=== PATIENT | female | born 1975 | race Caucasian/White ===

== ENCOUNTER 2017-04-15 17:56 | Emergency (ER) | payer MEDICARE ==
--- NOTE | 2017-04-15 18:19 | Emergency Department Record ---
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 she had sob and broke out in a sweat. it lasted about 15 minutes graduallly easing up. she smokes but has no fam hx. she has had no pe risk facrors except smoking. she has a back disability MD Complaint: Chest pain Onset/Timin -: Minutes(s) Onset: During rest Pain Location: Substernal Severity: Severe Severity scale (1-10): 10 Quality: Sharp Consistency: Constant, Now resolved Improves With: Nothing Worsens With: Nothing Anginal Symptoms: Diaphoresis, Dyspnea Treatments Prior to Arrival: None Treatment Prior to Arrival Comment:: EMS states they gave 4 aspirin in the ambulance - Related Data Home Medications Medication Instructions Recorded Confirmed Last Taken Albuterol Sulfate [Proair Hfa] 1 - 2 puff IH .EVERY 4-6 HOURS PRN 04/15/1704/1504/15/17 Budesonide/Formoterol Fumarate 10.2 gm IH ASDIR 04/15/17 04/15/17 Unknown [Symbicort 80-4.5 Mcg Inhaler] Fluticasone/Salmeterol [Advair 1 each IH ASDIR 04/15/17 04/15/17 Unknown 100-50 Diskus] Sertraline HCl [Zoloft] 50 mg PO DAILY 04/15/17 04/15/17 Unknown Allergies Allergy/AdvReac Type Severity Reaction Status Date / Time bee venom protein (honey bee) Allergy ANAPHYLAXIS Verified 04/15/17 18:00 shrimp Allergy ANAPHYLAXIS Verified 04/15/17 18:00 hydrocodone [From [place]] AdvReac VOMITING Verified 04/15/17 18:00 hydromorphone [From Dilaudid] AdvReac VOMITING Verified 04/15/17 18:00 meperidine [From Demerol] AdvReac VOMITING Verified 04/15/17 18:00 Travel Screening - Travel/Exposure Within Last 30 Days Have you traveled within the last 30 days?: No Review of Systems Reviewed: No additional complaints except as noted below Constitutional: Reports: As per HPI. Denies: Chills, Fever, Malaise, Night sweats, Weakness, Weight change Eyes: Reports: As per HPI. Denies: Eye discharge, Eye pain, Photophobia, Vision change ENT: Reports: As per HPI. Denies: Congestion, Dental pain, Ear pain, Epistaxis , Hearing loss, Throat pain Respiratory: Reports: As per HPI. Denies: Cough, Dyspnea, Hemoptysis, Stridor, Wheezes Cardiovascular: Reports: As per HPI. Denies: Arrhythmia, Chest pain, Dyspnea on exertion, Edema, Murmurs, Orthopnea, Palpitations, Paroxysmal nocturnal dyspnea, Rheumatic Fever, Syncope Endocrine: Reports: As per HPI. Denies: Fatigue, Heat or cold intolerance, Polydipsia, Polyuria Gastrointestinal: Reports: As per HPI. Denies: Abdominal pain, Constipation, Diarrhea, Hematemesis, Hematochezia, Melena, Nausea, Vomiting Genitourinary: Reports: As per HPI. Denies: Abnormal menses, Discharge, Dyspareunia, Dysuria, Frequency, Hematuria, Incontinence, Retention, Urgency Musculoskeletal: Reports: As per HPI. Denies: Arthralgia, Back pain, Gout, Joint swelling, Myalgia, Neck pain Skin: Reports: As per HPI. Denies: Bruising, Change in color, Change in hair/ nails, Lesions, Pruritus, Rash Neurological: Reports: As per HPI. Denies: Abnormal gait, Confusion, Headache, Numbness, Paresthesias, Seizure, Tingling, Tremors, Vertigo, Weakness Psychiatric: Reports: As per HPI. Denies: Anxiety, Auditory hallucinations, Depression, Homicidal thoughts, Suicidal thoughts, Visual hallucinations Hematological/Lymphatic: Reports: As per HPI. Denies: Anemia, Blood Clots, Easy bleeding, Easy bruising, Swollen glands Past Medical History - SOCIAL HISTORY Smoking Status: Current every day smoker Alcohol Use: Occasional Drug Use: None - RESPIRATORY Hx Respiratory Disorders: Yes Hx Asthma: Yes - CARDIOVASCULAR Hx Cardio Disorders: No - NEURO Hx Neuro Disorders: No - GI Hx GI Disorders: No - Hx Genitourinary Disorders: No - ENDOCRINE Hx Endocrine Disorders: Yes Hx Diabetes: Yes (hypoglycemic) - MUSCULOSKELETAL Hx Musculoskeletal Disorders: No - PSYCH Hx Psych Problems: Yes Hx Anxiety: Yes Hx Depression: Yes - HEMATOLOGY/ONCOLOGY Hx Hematology/Oncology Disorders: No Family Medical History Any Significant Family History?: Yes Hx Cancer: Father, Grandparents Physical Exam - General General Appearance: Alert, Oriented x3, Cooperative, Mild distress - Head Head exam: Normal inspection - Eye Eye exam: Normal appearance, PERRL, EOMI Pupils: Normal accommodation - ENT ENT exam: Normal exam, Mucous membranes moist, Normal external ear exam, Normal orophraynx, TM's normal bilaterally Ear exam: Normal external inspection. negative: External canal tenderness Nasal Exam: Normal inspection. negative: Discharge, Sinus tenderness Mouth exam: Normal external inspection, Tongue normal Teeth exam: Normal inspection. negative: Dental caries Throat exam: Normal inspection. negative: Tonsillar erythema, Tonsillar exudate - Neck Neck exam: Normal inspection, Full ROM. negative: Tenderness - Respiratory Respiratory exam: Normal lung sounds bilaterally. negative: Respiratory distress - Cardiovascular Cardiovascular Exam: Regular rate, Normal rhythm, Normal heart sounds - GI/Abdominal GI/Abdominal exam: Soft, Normal bowel sounds. negative: Tenderness - Rectal Rectal exam: Deferred - exam: Deferred - Extremities Extremities exam: Normal inspection, Full ROM, Normal capillary refill. negative: Tenderness - Back Back exam: Reports: Normal inspection, Full ROM. Denies: Muscle spasm, Rash noted, Tenderness - Neurological Neurological exam: Alert, CN II-XII intact, Normal gait, Oriented X3 - Psychiatric Psychiatric exam: Normal affect, Normal mood - Skin Skin exam: Dry, Intact, Normal color, Warm Course Vital Signs 04/15/17 17:58 Temperature 98.2 F Pulse Rate 86 Respiratory 18 Rate Blood Pressure 108/68 Pulse Ox 97 - Reevaluation(s) Reevaluation #1: 04/15/17 19:12 pt unhooked herself and went to restroom. we were extremely busy. she became upset that someone didnt immediately come back in and hook her back up. she was pain free at the time. she was back in her room approx 10 minutes when she became upset that no one had hooked her back up. she had not communicated this to anyone. i explained to the pt that her nurse and all of us were very busy and asked if she had pushed her call button or asked for help. she had not. i asked her repeatedly to stay and complete her evaluation as i am concerned about her. she adamently refused and wants to leave. i explained the risks to her including . she still refused. she was told that she could return at any time Medical Decision Making - Lab Data Result diagrams: 04/15/17 18:15 04/15/17 18:15 Disposition Disposition: Other Clinical Impression: Chest pain Qualifiers: Chest pain type: unspecified Qualified Code(s): R07.9 - Chest pain, unspecified Disposition: Against Medical Advice Instructions: Chest Pain (ED) Additional Instructions: may return at any time Forms: Patient Portal Access Quality - Quality Measures Quality Measures: N/A - Blood Pressure Screening Does Patient Have Any of the Following: No Blood Pressure Classification: Normal BP Reading Systolic Measurement: 108 Diastolic Measurement: 68 Screening for High Blood Pressure: < Normal BP, F/U Not Required > [[id number]]
[2017-04-15] MEDS ORDERED: ASPIRIN 81 MG CHEWABLE TABLET PO ONE (18:21)
[2017-04-15 18:32] LABS: BASO % 0.2 % (0-6); GRAN % 54.4 % (47-80); HEMATOCRIT 39.4 % (35.0-47.0); HEMOGLOBIN 13.7 gm/dl (11.6-16.0); MEAN CELL VOLUME 100.5 fl (81-97); MEAN CORPUSCULAR HEMOGLOBIN 34.9 pg (27-33); MEAN CORPUSCULAR HGB CONC 34.8 g/dl (32-36); MONO % 10.4 % (0-9); PLATELET COUNT 283 K/uL (130-400); RED BLOOD COUNT 3.92 M/uL (3.80-5.40); RED CELL DISTRIBUTION WIDTH 11.5 % (11.5-14.5); WHITE BLOOD COUNT W/O DIFF 8.8 K/uL (4.2-12.2)
[2017-04-15 18:43] LABS: ALB/GLOB RATIO 1.3 (1.1-1.8); ALBUMIN 4.3 gm/dL (3.5-5.0); ALKALINE PHOSPHATASE 60 U/L (38-126); ALT/SGPT 40 U/L (9-52); ANION GAP 11.7 (7-16); AST/SGOT 34 U/L (14-36); BILIRUBIN,TOTAL 0.59 mg/dL (0.2-1.3); BLOOD UREA NITROGEN 9 mg/dL (7-17); CARBON DIOXIDE 21.3 mmol/L (22-30); CREATINE PHOSPHOKINASE 82 U/L (30-135); CREATININE 0.6 mg/dL (0.52-1.04); EST GLOMERULAR FILTRATION RATE > 60 ml/min; GLUCOSE,RANDOM 85 mg/dL (70-110); TOTAL PROTEIN 7.5 gm/dL (6.3-8.2)
[2017-04-15 18:55] LABS: CKMB 0.8 ug/L (0-6); TROPONIN I < 0.012 ng/mL (0.00-0.034)
== END 2017-04-15 19:10 | disposition left against medical advice (07) ==
LOC: ER 17:56
DX: R07.2 Precordial pain (principal); R06.02 Shortness of breath; R61 Generalized hyperhidrosis; R10.13 Epigastric pain; E11.9 Type 2 diabetes mellitus without complications
CPT/HCPCS: 80053; 82550; 82553; 83874; 84484; 85025; 85379; 93005; 93010; 99284